=== PATIENT | male | born 1995 | race Caucasian/White ===

== ENCOUNTER 2020-09-15 22:23 | Emergency (ER) | payer OTHER, SELFPAY ==
[2020-09-15] VITALS (13 sets, daily range): BP systolic 110–174; BP diastolic 80–120; PULSE 82–109; RESP 17–23; TEMP 36.6; O2SAT 98–100
--- NOTE | ~2020-09-15 | XR_ITS ---
EXAMINATION: XR chest 1V portable DATE: 09/15/2020 22:43 INDICATION: Generalized chest pain and numbness in the arms and legs TECHNIQUE: frontal view of the chest was obtained. COMPARISON: Chest radiograph dated 06/11/2019 FINDINGS: Lung volumes are decreased since the prior study. Mild opacity left costophrenic angle most likely mi ld lingular atelectasis. No other airspace opacities, pulmonary edema, pleural effusion or pneumothor ax. The cardiomediastinal silhouette is within normal limits for AP technique and accounting for the decreased lung volumes. Visualized bones and soft tissues are unremarkable. IMPRESSION: 1. Mild lingular atelectasis. No other acute cardiopulmonary disease. Reviewed, dictated and finalized at location H. FICATION OPERATOR HELPER
--- NOTE | 2020-09-15 22:35 | ECG_ITS ---
Measurements Intervals [place] Rate: 76 P: 32 TX: 157 QRS: 79 QRSD: 113 T: 44 QT: 365 QTc: 410 Interpretive Statements SINUS RHYTHM INTRAVENTRICULAR CONDUCTION DELAY BASELINE WANDER- I, II, III, AVL BORDERLINE ECG Electronically Signed On 09-16-2020 8:20:05 ALLERGIST/IMMUNOLOGIST PHYSICIAN by Cricket Bullard D.O.
--- NOTE | 2020-09-15 22:40 | PC.NURSE ---
patient here with right arm numbness and tingling. see triage notes. MD in room on patient's arrival. EKG done. on cardiac rehabilitation program director. SL inserted. labs drawn. assessments documented. history updated. no home medications at this time. in room. call light in reach.
[2020-09-15 22:44] LABS: Basophils Absolute Auto 0.1 K/mm3 (0.0-0.1); Basophils Percent Auto 0.3 % (0.2-1.2); Eosinophils Absolute Auto 0.3 K/mm3 (0-0.3); Eosinophils Percent Auto 2.1 % (0-4.4); Hematocrit 49.5 % (42.0-52.0); Hemoglobin 16.4 g/dL (14.0-18.0); Immature Granulocyte Absolute 0.03 K/mm3 (0.00-0.031); Immature Granulocyte Percent A 0.2 % (0-0.5); Lymphocytes Absolute Auto 3.36 K/mm3 (0.9-3.2); Lymphocytes Percent Auto 21.9 % (18.3-44.2); Mean Corpuscular HGB Conc 33.1 g/dl (32-36); Mean Corpuscular Volume 87.6 fl (80-100); Mean Platelet Volume 9.9 fl (7.4-10.4); Monocytes Absolute Auto 1.4 K/mm3 (0.1-0.6); Monocytes Percent Auto 9.2 % (2.6-8.5); Neutrophils Absolute Auto 10.2 K/mm3 (1.3-6.7); Neutrophils Percent Auto 66.3 % (45.5-73.1); Platelet Count Result 365 k/mm3 (150-375); Red Blood Count 5.65 M/mm3 (4.6-6.20); Red Cell Distribution Width 13.4 % (11.5-14.5); White Blood Count 15.4 K/mm3 (4.5-10.0)
[2020-09-15] MEDS: ASPIRIN 81 MG CHEWABLE TABLET 324 MG PO (22:50)
[2020-09-15] MEDS: KETOROLAC 30 MG/ML VIAL (*BKC) IV PUSH (22:52)
--- NOTE | 2020-09-15 22:54 | PC.NURSE ---
patient medicated as ordered. BP down. c/o dizziness a few minutes ago. attempting to help patient relax.SO in room.
[2020-09-15 22:57] LABS: Alanine Aminotransferase 58 U/L (4-50); Albumin Level 4.6 g/dL (3.5-5.1); Alkaline Phosphatase 75 U/L (38-126); Anion Gap 8 mmol/L (8-16); Aspartate Amino Transferase 57 U/L (17-59); Bilirubin,Total 0.6 mg/dL (0.2-1.3); Blood Urea Nitrogen 17 mg/dL (9-20); Calcium 9.3 mg/dL (8.4-10.2); Carbon Dioxide 31 mmol/L (22-30); Chloride 104 mmol/L (98-107); Estimated CRCL calculation 141 ml/min; Estimated Glomerular Filt Rate > 60; Glucose 133 mg/dL (75-110); Lipase 119 U/L (23-300); Potassium 4.1 mmol/L (3.4-5.0); Sodium 143 mmol/L (137-145)
[2020-09-15 23:09] LABS: Troponin I < 0.012 ng/mL (0.000-0.034)
--- NOTE | 2020-09-16 00:18 | ED.CHESTPAIN ---
HPI - Chest Pain General Chief Complaint: Chest Pain Stated Complaint: CP, NUMBNESS IN ARMS AND LEGS Time Seen by Provider: 09/15/20 22:27 History of Present Illness HPI narrative: Patient is a 24-year-old gentleman who presents the emergency department with chief complaint of chest pain. The patient states over the last several days he has had discomfort in his left upper chest. The patient states that sharp states it is worse with movement and worse with palpation. Patient does report that he had a little bit of a cough and has had some occasional sputum production. The patient denies fever denies Covid exposure. The patient reports that he smokes cigarettes. Patient denies prior history of cardiac disease denies family history for sudden cardiac and connective tissue disorders. Related Data Allergies Allergy/AdvReac Type Severity Reaction Status Date / Time No Known Allergies Allergy Unverified 06/11/19 12:45 Review of Systems Review of Systems: Narrative: CONSTITUTIONAL: Denies fever, chills, or sweats. EYES: Denies visual changes, redness, or discharge. ENT: Denies rhinorrhea, congestion, sore throat, or otalgia. CARDIOVASCULAR: Denies chest pain, palpitations, or edema. RESPIRATORY: Denies cough or dyspnea. GASTROINTESTINAL: Denies abdominal pain, nausea, vomiting, or diarrhea. GENITOURINARY: Denies dysuria or hematuria. SKIN: Denies rash or itching. MUSCULOSKELETAL: Denies back pain, joint pain, or myalgia. NEUROLOGIC: Denies headache, numbness, or weakness. PSYCHIATRIC: Denies anxiety or depression. All systems reviewed & are unremarkable except as noted in HPI and below PMFSH Comments Patient reports no past medical history Patient reports that he smokes a pack of cigarettes a day Exam Narrative: Exam Narrative: GENERAL: Well-appearing, well-nourished, and in no acute distress. HEAD: Normocephalic, atraumatic. EYES: PERRLA and EOMI. ENT: Nares clear, no rhinorrhea or epistaxis. Mucous membranes moist. NECK: Supple. CHEST: Clear to auscultation. No respiratory distress. Chest wall is tender to palpation in the left sternal border HEART: Regular rate and rhythm. No murmur heard. Normal peripheral pulses. ABDOMEN: Soft, nontender, nondistended, normal active bowel sounds. EXTREMITIES: Normal range of motion. No edema. SKIN: Warm, dry, no rash. NEURO: No focal deficits. Alert and oriented x3. PSYCH: Normal mood and affect. Course Course Emergency Course: EKG shows a sinus rhythm with a rate of [address] elevation there is no ST depression. The electronic read did show possible ST elevations in V2 through V5 this is most likely due to motion artifact at the baseline of the EKG. Patient's laboratory studies showed no evidence of elevation in the patient's troponin since his symptoms have been ongoing for several days no further troponins are required. Vital Signs Vital signs: Vital Signs Pulse Rate 109 H 09/15/20 22:29 Respiratory Rate 23 H 09/15/20 22:29 Pulse Oximetry 100 09/15/20 22:29 Temperature 36.6 C 09/15/20 22:32 Pulse Rate 82 09/15/20 23:45 Respiratory Rate 20 09/15/20 23:45 Blood Pressure 148/80 H 09/15/20 23:45 Pulse Oximetry 99 09/15/20 23:45 MDM - Chest Pain Lab Data Result diagrams: 09/15/20 22:38 09/15/20 22:38 Labs: Lab Results 09/15/20 09/15/20 Range/Units 22:38 22:38 WBC 15.4 H (4.5-10.0) K/mm3 RBC 5.65 (4.6-6.20) M/mm3 Hgb 16.4 (14.0-18.0) g/dL Hct 49.5 (42.0-52.0) % MCV 87.6 (80-100) fl MCH 29.0 (26-34) pg MCHC 33.1 (32-36) g/dl RDW 13.4 (11.5-14.5) % Plt Count 365 (150-375) k/mm3 MPV 9.9 (7.4-10.4) fl Immature Gran % (Auto) 0.2 (0-0.5) % Neut % (Auto) 66.3 (45.5-73.1) % Lymph % (Auto) 21.9 (18.3-44.2) % Moore % (Auto) 9.2 H (2.6-8.5) % Eos % (Auto) 2.1 (0-4.4) % Baso % (Auto) 0.3 (0.2-1.2) % Lymph # (Auto) 3.36 H (0.9-3.2) K/mm3 M
[2020-09-16 00:30] VITALS: BP 139/81; PULSE 82; RESP 16; O2SAT 100
== END 2020-09-16 00:30 | disposition home or self-care (01) ==
PROVIDERS: Emergency Provider Emergency Medicine; PCP Internal Medicine
DX: R07.89 Other chest pain (principal); F17.210 Nicotine dependence, cigarettes, uncomplicated
CPT/HCPCS: 36415; 71045; 80053; 83690; 84484; 85025; 93005; 96374; 99284; A9270; J1885